=== PATIENT | female | born 1950 | race Caucasian/White ===

== ENCOUNTER 2017-01-12 08:04 | Emergency (ER) | payer OTHER ==
--- NOTE | ~2017-01-12 | CR126 ---
[facility]. [facility] A Service of [facility] & [facility] RADIOLOGY TEXT RESULTS PATIENT: ALEXYS CASTRO LOCATION: SED : 46 UNIT #: [id number] AGE: [address]: Hugh Oviedo MD SEX: F ORDER DR: [id number] [place] [id number] E MR#: [id number] Acc #: [id number] NAME: ALEXYS CASTRO : 1950 SEX: F STUDY DATE/TIME: 01/12/2017 8:46 UNIT: SED ROOM: STUDY DESCRIPTION: CR Foot Complete Min 3 View Lt Attending Physician: Hugh Oviedo M.D. Ordering Physician: Hugh Oviedo M.D. Primary Care Physician: Michael Kent M.D. MEDICAL IMAGING REPORT This report is preliminary unless electronic signature is present. EXAM Left foot 3 views INDICATIONS Left foot pain for 1 week. No comparisons. FINDINGS There is degenerative change and narrowing of the first MTP joint. No fracture or dislocation. IMPRESSION No acute findings. Degenerative change of the first MTP. Dictated by... Sudheer Pace M.D. THIS IS AN ELECTRONICALLY VERIFIED REPORT Sudheer Pace M.D. at 01/12/2017 3:21 PM ARS/hermes TD: 01/12/2017 13:08 JOB #: [id number] MEDICAL IMAGING REPORT Page 1 of 1
[~2017-01-12 08:04] MED LIST: ACETAMINOPHEN325 MG PO; ALBUTEROL MININEB NEB; ALBUTEROL NEB; ALBUTEROL17 GM INH; ALPRAZOLAM PO; ASMANEX0.24 G3 IH; BENADRYL PO; CIPRO PO; DARVOCET-N 1001 TAB PO; DIFLUCAN PO; DILANTIN PO; EPINEPHRIN0.3 MG/0.1 IM; FOLIC ACID1 MG PO; HYDROCODON-ACE1 EAC9 PO; LEVAQUIN PO; LEXAPRO PO; LISINOPRIL PO; MACROBID 100 M100 MG PO; MEDROL DOSEPAK4 MG; MEDROL PO; MONISTAT 11 EA; NAPROSYN250 M1 PO; PHENERGAN PO; PREDNISONE10 MG PO; PRINCIPEN500 M1 PO; PROZAC PO; SINGULAIR; SINGULAIR PO; SKELAXIN PO; TAMIFLU75 M1 PO; TOPAMAX PO; VISTARIL PO; XANAX1 MG PO; ZANTAC; ZOFRAN PO; ZYRTEC; ZYRTEC PO; [UNRECOGNIZED DRUG - OTHER] PO
== END 2017-01-12 09:36 | disposition home or self-care (01) ==
LOC: SED 08:04
DX: M72.2 Plantar fascial fibromatosis (principal); I10 Essential (primary) hypertension; Z79.899 Other long term (current) drug therapy; Z88.1 Allergy status to other antibiotic agents; Z88.2 Allergy status to sulfonamides
CPT/HCPCS: 29405; 73630; 99283

== ENCOUNTER → 2017-02-20 | Outpatient (CLI) | payer OTHER ==
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
== END | disposition home or self-care (01) ==
LOC: SCT 08:48
DX: R51 Headache (principal); G31.9 Degenerative disease of nervous system, unspecified
CPT/HCPCS: 70450